=== PATIENT | female | born 1975 | race African-American/Black ===

== ENCOUNTER 2016-10-27 19:06 | Emergency (ER) | payer OTHER ==
--- NOTE | ~2016-10-27 | CR63 ---
[facility]. [facility] A Service of [facility] & [facility] / [facility] RADIOLOGY TEXT RESULTS PATIENT: SUMAN LYNN LOCATION: SED : 79 UNIT #: [id number] AGE: [address]: KAYLA SAEZ SEX: F ORDER DR: [id number] [address] [address] [id number] MR#: [id number] Acc #: [id number] NAME: SUMAN LYNN : 1975 SEX: F STUDY DATE/TIME: 10/27/2016 19:52 UNIT: SED ROOM: STUDY DESCRIPTION: CR Chest 2 View Attending Physician: Kayla Saez Aprn Ordering Physician: Kayla Saez Aprn Primary Care Physician: Hunter Carrasquillo M.D. MEDICAL IMAGING REPORT This report is preliminary unless electronic signature is present. EXAM Two-view chest 10/27/2016 INDICATIONS 41-year-old female with back pain, left shoulder pain that extends into the axilla, hurts to breathe. Symptoms began 2 hours prior to arrival. Two-view chest compared with 07/01/14 FINDINGS The cardiac silhouette unremarkable. The vascularity is normal. Lungs are clear. Faint nodular density in the [id number] lungs on the right unchanged and therefore benign. IMPRESSION 1. Negative chest. No significant change. Dictated by... Baltazar Lacey M.D. THIS IS AN ELECTRONICALLY VERIFIED REPORT Baltazar Lacey M.D. at 10/28/2016 2:00 PM Woody TD: 10/28/2016 11:46 JOB #: [id number] MEDICAL IMAGING REPORT Page 1 of 1
--- NOTE | ~2016-10-27 | EKG ---
PATIENT: SUMAN LYNN UNIT #: [id number] Ventricular Rate: 92 BPM Atrial Rate: 92 BPM P-R Interval: 142 ms QRS Duration: 84 ms Q-T Interval: 348 ms QTC Calculation(Bezet): 430 ms P [place]: 37 degrees Calculated R [place]: -14 degrees Calculated T [place]: 19 degrees Diagnosis Line: Normal sinus rhythm Diagnosis Line: Voltage criteria for left ventricular hypertrophy Diagnosis Line: Abnormal ECG Diagnosis Line: When compared with ECG of 30-JUN-2014 23:49, Diagnosis Line: No significant change was found Diagnosis Line: Confirmed by AMY LARA MD ([id number]) on Diagnosis Line: 10/31/2016 9:01:11 AM INTERPRETING MD: MARCO SUTTON
[~2016-10-27 19:06] MED LIST: MOTRIN600 MG PO; NO MEDICATIONS; OMNICEF300 MG; SUDAFED PO; VOLTAREN75 MG PO; XANAX0.5 MG PO; ZOFRAN PO
== END 2016-10-27 20:32 | disposition home or self-care (01) ==
LOC: SED 19:06
DX: S46.812A Strain of other muscles, fascia and tendons at shoulder and upper arm level, left arm, initial encounter (principal); F17.210 Nicotine dependence, cigarettes, uncomplicated; Z98.51 Tubal ligation status; Z88.5 Allergy status to narcotic agent; X58.XXXA Exposure to other specified factors, initial encounter; Y92.009 Unspecified place in unspecified non-institutional (private) residence as the place of occurrence of the external cause
CPT/HCPCS: 71020; 93005; 99283